=== PATIENT | female | born 2000 | race Hispanic/Latino ===

== ENCOUNTER 2022-07-05 10:15 | Emergency (ER) | payer BC ==
[~2022-07-05] VITALS: Ht 152.4 cm; Wt 42.2 kg
[2022-07-05] MEDS ORDERED: LACTATED RINGER'S 1,000 ML IV ONE (10:45)
[2022-07-05] MEDS ORDERED: DIPHENHYDRAMINE HCL INJ 50 MG/ML VIAL IV ONE (11:00)
[2022-07-05] MEDS ORDERED: METOCLOPRAMIDE HCL 10 MG/2ML VIAL IV ONE (11:00)
[2022-07-05 11:11] LABS: BASOPHILS # (AUTO) 0.1 (0.0-0.1); EOSINOPHILS # (AUTO) 0.1 (0.0-0.4); EOSINOPHILS % 0.7 % (0.0-6.0); HEMATOCRIT 40.8 % (34.2-44.1); HEMOGLOBIN 14.4 g/dL (12.0-16.0); LYMPHOCYTES # (AUTO) 2.1 (1.0-3.2); LYMPHOCYTES % 15.5 % (18.0-39.1); MEAN CORPUSCULAR HEMOGLOBIN 31.5 pg (28-32); MEAN CORPUSCULAR HGB CONC 35.3 g/dL (31-35); MEAN CORPUSCULAR VOLUME 89.3 fL (81-99); MONOCYTES # (AUTO) 0.7 (0.2-0.8); MONOCYTES % 5.2 % (4.4-11.3); NEUTROPHILS # (AUTO) 10.5 (2.1-6.9); NEUTROPHILS % 77.2 % (38.7-80.0); PLATELET COUNT 442 x10e3/uL (140-360); RED BLOOD COUNT 4.57 x10e6/uL (3.6-5.1); RED CELL DISTRIBUTION WIDTH 12.5 % (11.7-14.4)
[2022-07-05 11:36] LABS: ANION GAP 21.8 mmol/L (8-16); BLOOD UREA NITROGEN 9 mg/dL (7-26); BUN/CREATININE RATIO 11 (6-25); CALCIUM 9.7 mg/dL (8.4-10.2); CARBON DIOXIDE 15 mmol/L (22-29); CHLORIDE 111 mmol/L (98-107); CREATINE KINASE 93 IU/L (29-168); CREATININE, SERUM 0.79 mg/dL (0.57-1.11); GLUCOSE 109 mg/dL (74-118); POTASSIUM 3.8 mmol/L (3.5-5.1); SODIUM 144 mmol/L (136-145)
[2022-07-05 12:49] LABS: CLARITY,URINE CLEAR (CLEAR); COLOR,URINE YELLOW (YELLOW); KETONES,URINE 2+ (NEGATIVE); LEUKOCYTE ESTERASE ,URINE NEGATIVE (NEGATIVE); NITRITE,URINE POSITIVE (NEGATIVE); PROTEIN,URINE DIPSTICK TRACE (NEGATIVE)
[2022-07-05 12:50] LABS: URINE UROBILINOGEN 0.2 mg/dL (0.2 - 1)
[2022-07-05 12:59] LABS: BACTERIA,URINE MANY /HPF; EPITHELIAL CELLS,URINE MANY /LPF; RBC,URINE 0-5 /HPF (0-5)
[2022-07-05] MEDS ORDERED: ONDANSETRON ODT4 MG PO (13:13)
[2022-07-05] MEDS ORDERED: OMEPRAZOLE20 M1 PO (13:13)
== END 2022-07-05 13:29 | disposition home or self-care (01) ==
LOC: ER 10:19
DX: R10.13 Epigastric pain (principal); R07.89 Other chest pain; K29.70 Gastritis, unspecified, without bleeding; R11.2 Nausea with vomiting, unspecified; F41.9 Anxiety disorder, unspecified
CPT/HCPCS: 36415; 71045; 80048; 81001; 81025; 82550; 82553; 84484; 85025; 93005; 99284; J1200; J2765; J7121

== ENCOUNTER 2023-12-25 02:48 | Emergency (ER) | payer SELFPAY ==
[~2023-12-25] VITALS: Ht 152.4 cm; Wt 54.0 kg
[~2023-12-25 02:48] MED LIST: CEFUROXIME500 MG PO; HYDROXYZINE HCL10 MG PO; HYDROXYZINE HCL25 MG PO; OMEPRAZOLE20 M1 PO; ONDANSETRON ODT4 MG PO
[2023-12-25 03:12] VITALS: PULSE 68; RESP 18; TEMP 98.7
[2023-12-25] MEDS: SODIUM CHLORIDE 0.9% 1000ML 1,000 ML IV ONE (04:11)
[2023-12-25] MEDS: PROMETHAZINE HCL (IM) 25 MG/ML VIAL IM ONE (04:11)
[2023-12-25 06:25] VITALS: BP 116/61; PULSE 64; RESP 18; TEMP 98.4; O2SAT 100
== END 2023-12-25 06:25 | disposition other institution (70) ==
LOC: FSED 03:06
DX: O21.1 Hyperemesis gravidarum with metabolic disturbance (principal); O23.41 Unspecified infection of urinary tract in pregnancy, first trimester; N39.0 Urinary tract infection, site not specified; F41.9 Anxiety disorder, unspecified
CPT/HCPCS: 80048; 80076; 80307; 81003; 81025; 85025; 87086; 87186; 99284; J2550; J7030